=== PATIENT | female | born 1990 | race Hispanic/Latino ===

== ENCOUNTER → 2024-04-01 10:17 | Outpatient (REF) | payer OTHER, SELFPAY ==
[2024-04-01 12:14] LABS: ALT (SGPT) 16 U/L (0-35); AST (SGOT) 19 U/L (14-36); Albumin 4.5 g/dl (3.5-5.0); Alkaline Phosphatase 97 U/L (38-126); Blood Urea Nitrogen 13 mg/dl (7-17); Calcium 9.8 mg/dl (8.4-10.2); Carbon Dioxide 25 mmol/L (22-30); Chloride 104 mmol/L (98-107); Glucose 101 mg/dl (70-99); Potassium 3.9 mmol/L (3.5-5.1); Sodium 142 mmol/L (135-145); Total Bilirubin 0.2 mg/dl (0.2-1.3); Total Protein 7.4 g/dl (6.3-8.2); eGFR > 60.00
[2024-04-01 12:32] LABS: Vitamin D, 25-OH*** 26.8 ng/mL (30-80)
[2024-04-01 13:25] LABS: Beta HCG Quantitative < 2.39 mIU/ml
== END ==
LOC: REG 10:17
PROVIDERS: ATTENDING PHYSICIAN Nurse Practitioner Adult Health
DX: I10 Essential (primary) hypertension (principal); E55.9 Vitamin D deficiency, unspecified; N91.2 Amenorrhea, unspecified
CPT/HCPCS: 36415; 80053; 82306; 84702

== ENCOUNTER → 2024-04-22 09:41 | Outpatient (REF) | payer OTHER, SELFPAY | LOC: CLINIC 09:41 | PROVIDERS: ATTENDING PHYSICIAN Obstetrics & Gynecology Gynecology | DX: Z12.4 Encounter for screening for malignant neoplasm of cervix (principal) | CPT/HCPCS: G0123 ==

== ENCOUNTER → 2024-04-22 10:05 | Outpatient (REF) | payer OTHER, SELFPAY ==
[2024-04-22 13:46] LABS: FSH 3.2 mIU/ml; Luteinizing Hormone 8.05 mIU/ml; Prolactin 30.9 ng/ml (3.0-18.6)
[2024-04-22 14:00] LABS: TSH 1.87 uIU/ml (0.47-4.68)
[2024-04-22 14:01] LABS: Estradiol 162.3 pg/ml
== END ==
LOC: CLINIC 10:05
PROVIDERS: ATTENDING PHYSICIAN Obstetrics & Gynecology Gynecology; FAMILY PHYSICIAN Nurse Practitioner Adult Health
DX: N91.2 Amenorrhea, unspecified (principal)
CPT/HCPCS: 36415; 82670; 83001; 83002; 84146; 84443

== ENCOUNTER → 2024-08-03 07:46 | Outpatient (REF) | payer OTHER, SELFPAY ==
[2024-08-03 18:38] LABS: Prolactin 44.7 ng/ml (3.0-18.6); Vitamin D, 25-OH*** 28.6 ng/mL (30-80)
== END ==
LOC: CLINIC 07:46
PROVIDERS: ATTENDING PHYSICIAN Family Medicine
DX: E22.1 Hyperprolactinemia (principal); E55.9 Vitamin D deficiency, unspecified
CPT/HCPCS: 36415; 82306; 84146

== ENCOUNTER → 2024-11-18 09:49 | Outpatient (REF) | payer OTHER, SELFPAY ==
[2024-11-18 11:27] LABS: Blood Urea Nitrogen 11 mg/dl (7-17); Calcium 9.4 mg/dl (8.4-10.2); Carbon Dioxide 23 mmol/L (22-30); Chloride 110 mmol/L (98-107); Glucose 83 mg/dl (70-99); Potassium 4.2 mmol/L (3.5-5.1); Sodium 141 mmol/L (135-145); eGFR > 60.00
[2024-11-18 11:45] LABS: Prolactin 37.5 ng/ml (3.0-18.6); Vitamin D, 25-OH*** 34.9 ng/mL (30-80)
== END ==
LOC: CLINIC 09:49
PROVIDERS: ATTENDING PHYSICIAN Nurse Practitioner Adult Health
DX: E22.1 Hyperprolactinemia (principal); E55.9 Vitamin D deficiency, unspecified; I10 Essential (primary) hypertension
CPT/HCPCS: 36415; 80048; 82306; 84146

== ENCOUNTER → 2024-11-25 11:49 | Outpatient (REF) | payer OTHER, SELFPAY | LOC: PAVMRI 11:49 | PROVIDERS: ATTENDING PHYSICIAN Nurse Practitioner Adult Health | DX: E22.1 Hyperprolactinemia (principal) | CPT/HCPCS: 70553; A9575 ==

== ENCOUNTER → 2025-03-03 07:28 | Outpatient (REF) | payer OTHER, SELFPAY ==
[2025-03-03 10:01] LABS: Vitamin D, 25-OH*** 44.0 ng/mL (30-80)
== END ==
LOC: CLINIC 07:28
PROVIDERS: ATTENDING PHYSICIAN Nurse Practitioner Adult Health
DX: E22.1 Hyperprolactinemia (principal); E55.9 Vitamin D deficiency, unspecified
CPT/HCPCS: 36415; 82306; 84146

== ENCOUNTER → 2025-04-16 12:00 | Outpatient (REF) | payer OTHER, SELFPAY ==
[2025-04-16 13:51] LABS: TSH 1.77 uIU/ml (0.47-4.68)
[2025-04-16 13:56] LABS: Cortisol, Random 8.7 ug/dl
[2025-04-16 14:39] LABS: FSH 5.9 mIU/ml
[2025-04-18 03:22] LABS: IGF-1 Z Score Calculation -0.9
== END ==
LOC: CLINIC 12:00
PROVIDERS: ATTENDING PHYSICIAN Nurse Practitioner Adult Health
DX: E22.1 Hyperprolactinemia (principal)
CPT/HCPCS: 36415; 82024; 82533; 82670; 83001; 83002; 84305; 84439; 84443